=== PATIENT | female | born 1930 | race Caucasian/White ===

== ENCOUNTER 2016-12-01 16:29 | Outpatient (CLI) | payer MEDICARE ==
[2016-12-01 17:11] LABS: Bilirubin Negative (Negative); Blood, Urine Moderate (Negative); Clarity Clear (Clear); Glucose, Urine (Dipstick) Negative (Negative); Leukocyte Small (Negative); Nitrite Negative (Negative); Protein, Urine (Dipstick) 100 mg/dL (Neg-Trace)
[2016-12-01 19:53] LABS: Bacteria/HPF 3+ HPF (None Seen); Crystals/HPF RARE CA OXALATE HPF (Negative); Squamous Epithelial 0-3 HPF (0-3)
== END 2016-12-01 16:30 | disposition home or self-care (01) ==
LOC: NAV LABSP 16:29
PROVIDERS: ATTEND Family Medicine
DX: N39.0 Urinary tract infection, site not specified (principal)
CPT/HCPCS: 81001; 87077; 87086; 87186

== ENCOUNTER 2017-02-09 16:17 | Outpatient (CLI) | payer MEDICARE ==
[2017-02-09 22:11] LABS: Bilirubin Negative (Negative); Blood, Urine Trace (Negative); Clarity Clear (Clear); Glucose, Urine (Dipstick) Negative (Negative); Leukocyte Negative (Negative); Nitrite Negative (Negative); Protein, Urine (Dipstick) Negative (Neg-Trace)
[2017-02-09 22:23] LABS: Bacteria/HPF None Seen HPF (None Seen); RBC/HPF 0-3 HPF (0-3); Squamous Epithelial 0-3 HPF (0-3); WBC/HPF None Seen HPF (0-3)
[2017-02-09 22:24] LABS: Crystals/HPF 1+ CA OXALATE HPF (Negative)
== END 2017-02-09 16:18 | disposition home or self-care (01) ==
LOC: NAV LABSP 16:17
PROVIDERS: ATTEND Family Medicine
DX: N39.0 Urinary tract infection, site not specified (principal)
CPT/HCPCS: 81001; 87086